=== PATIENT | female | born 1980 | race Caucasian/White ===

== ENCOUNTER → 2016-12-29 | Outpatient (CLI) | payer OTHER ==
[~2016-12-29] MED LIST: AMOXICILLIN PO; BACTRIM DS TABL1 TA2 PO; BIRTH CONTROL PILL PO
--- NOTE | ~2016-12-29 | MR17 ---
[facility] A Service of [facility] & [facility] RADIOLOGY TEXT RESULTS PATIENT: SANDY GREEN LOCATION: [facility] : 84 UNIT #: [id number] AGE: [address]: Antony Gay MD SEX: F ORDER DR: [id number] [address] [address] [id number] MR#: [id number] Acc #: [id number] NAME: SANDY GREEN : 1980 SEX: F STUDY DATE/TIME: 12/29/2016 11:53 UNIT: [facility] ROOM: STUDY DESCRIPTION: MR Brain WWo Contrast Attending Physician: Antony Gay M.D. Referring Physician: Antony Gay M.D. Ordering Physician: Antony Gay M.D. Primary Care Physician: Carina Haines A.P.R.N. MRI CENTER REPORT This report is preliminary unless electronic signature is present. EXAM MRI of the brain with and without contrast dated 12/29/2016. COMPARISON MRI brain with and without contrast dated 12/20/2015. 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 Surgery was on January 22, 2014. FINDINGS Multisequence multiplanar imaging of the brain was obtained with and without contrast. Previously noted postoperative change with resection cystic cavity and surrounding gliosis is seen in the anterior left frontal lobe and extending to the inferior aspect abutting the anterior fossa of the skull. Stable. No enhancing new soft tissue nodules or adjacent lesions are seen. The cystic space abuts the anterior horn of the left lateral ventricle. Thin membrane the two cannot be completely excluded though it appears to be in communication based on the given images. Stable. Remaining brain demonstrates age-appropriate changes without any new abnormality. Nasal septum is deviated to the left. Nodular mucosal thickening is seen in the right maxillary antral floor. Mastoid air cells and orbits are unremarkable. IMPRESSION 1. No significant interval change. 2. Stable postoperative changes without new enhancing lesions. Dictated by... Roselia George M.D. [facility] A Service of [facility] & [facility] RADIOLOGY TEXT RESULTS PATIENT: SANDY GREEN LOCATION: [facility] : 84 UNIT #: [id number] AGE: [address]: Antony Gay MD SEX: F ORDER DR: THIS IS AN ELECTRONICALLY VERIFIED REPORT Roselia George M.D. at 01/01/2017 12:36 PM CPR/cmm TD: 12/30/2016 13:40 JOB #: [id number] MRI CENTER REPORT Page 1 of 1
== END | disposition home or self-care (01) ==
LOC: SMRI 11:40
DX: Z08 Encounter for follow-up examination after completed treatment for malignant neoplasm (principal); Z85.841 Personal history of malignant neoplasm of brain; Z98.890 Other specified postprocedural states
CPT/HCPCS: 70553; A9581